=== PATIENT | female | born 1990 | race Caucasian/White ===

== ENCOUNTER → 2018-02-18 16:59 | Outpatient (CLI) | payer OTHER, SELFPAY ==
[2018-02-18 17:34] LABS: Add Manual Diff / Slide Review NO; Basophils Percent Auto 0.5 % (0-2); Eosinophils Percent Auto 1.5 % (2-4); Hematocrit 39.5 % (36-46); Hemoglobin 13.3 g/dL (12.0-16.0); Lymphocytes Percent Auto 20.4 % (25-40); Mean Corpuscular HGB Conc 33.6 % (30-36); Mean Corpuscular Hemoglobin 30.5 PG (26-34); Mean Corpuscular Volume 90.7 fL (80-100); Monocytes Percent Auto 7.1 % (3-14); Neutrophils Absolute Auto 9200 /uL (3000-5900); Neutrophils Percent Auto 70.5 % (50-75); Platelet Count 326 X10^3/uL (150-400); Red Blood Cell Count 4.36 X10^6/uL (4.0-5.2); Red Cell Distribution Width 12.9 % (11.6-14.8); White Blood Cell Count 13.1 X10^3/uL (4.5-11.0)
[2018-02-18 17:34] LABS: Appearance Urine UA CLEAR; Bilirubin Urine UA NEGATIVE (NEGATIVE); Color Urine UA YELLOW; Glucose Urine UA NEGATIVE (Normal); Ketones Urine UA NEGATIVE (NEGATIVE); Leukocyte Esterase Urine UA 1+ (NEGATIVE); Nitrite Urine UA NEGATIVE (Negative); Occult Blood Urine UA TRACE-LYSED (Negative); Protein Urine UA NEGATIVE (Negative); Urobilinogen Urine UA 0.2 E.U./dL (0.2)
[2018-02-18 17:47] LABS: Bacteria Urine Few (2-10); RBC Urine 1-5/HPF (0-5/HPF); Squamous Epithelial Cell Urine 1-5 /HPF; Urine Comments CX ALREADY ORDERED; WBC Urine 1-5/HPF (0-5/HPF)
[2018-02-18 18:54] LABS: Hepatitis B Surface Antigen NEGATIVE s/c (NEGATIVE); Rubella Antibody IgG 15.7 IU/mL (>15)
[2018-02-18 19:12] LABS: HIV 1 and 2 Antibody NEGATIVE (NEGATIVE); Hep C Virus Ab w/Reflex Quant NEGATIVE s/c (NEGATIVE)
[2018-02-21 13:05] LABS: RPR Screen Nonreactive (Nonreactive)
[2018-02-21 14:11] LABS: HSV 2 IGG AB < 0.90 index (< 0.90)
== END ==
PROVIDERS: PCP Family Medicine; Visit Provider Specialist
DX: Z34.91 Encounter for supervision of normal pregnancy, unspecified, first trimester (principal)
CPT/HCPCS: 36415; 80055; 81003; 81015; 86695; 86696; 86703; 86787; 86803; 86850; 86900; 86901; 87086

== ENCOUNTER → 2018-04-17 08:34 | Outpatient (CLI) | payer OTHER, SELFPAY ==
[2018-04-22 11:59] LABS: AFP, Serum 43.4 ng/mL; Calc Gestational Age 17.3; Cigarette Smoker N; Donated Egg NOT GIVEN; Donor Egg Age NOT GIVEN; Estriol, Free 1.96 ng/mL; Inhibin A, Dimeric 219 pg/mL; Maternal Weight 162 lbs; Number of Fetuses 2; Previous Pregnancy Down Syndro NOT GIVEN; Risk of Open Neural Tube Defec UNAVAILABLE; hCG, Serum 71.9 IU/mL
== END ==
PROVIDERS: PCP Family Medicine; Visit Provider Specialist
DX: Z34.82 Encounter for supervision of other normal pregnancy, second trimester (principal)
CPT/HCPCS: 36415; 82105; 82677; 84702; 86336

== ENCOUNTER → 2018-05-07 09:15 | Outpatient (CLI) | payer OTHER, SELFPAY ==
--- NOTE | 2018-05-07 09:16 | DI.US.S_ITS ---
PROCEDURE: US OB >= 14 WEEKS FETUS INDICATIONS: 20 WEEK ANATOMIC SURVEY OUTSIDE/PRIOR DATING DATA: Last menstrual period (LMP): 12/17/17. LMP-based estimated date of delivery (SUSHANT): 09/23/18. First dating scan (date and location): 05/07/18. Estimated date of delivery (SUSHANT) from first dating scan: 09/27/18. TECHNIQUE: Real-time scanning was performed of the fetuses, with image documentation and biometric measurements. Endovaginal scanning: No COMPARISON: [facility], , OB >= 14 WEEKS FETUS, 05/01/2018, 13:48. FINDINGS: General: An intrauterine diamniotic dichorionic twin is present, as evidenced by separate placentas, differing sexes, or an intervening membrane of greater than 2 mm. Amniotic fluid index (composite): 10.9 cm. Maternal cervical canal: 4.7 cm long. Normal lower limit is 2.5 cm. FETUS A: Fetus is located on the maternal right side, and is in vertex presentation. Largest amniotic fluid pocket not obtained. Placental position is anterior, without previa. heart rate: 141 beats per minute. biometrics: Biparietal diameter: 19 weeks 3 days Head circumference: 19 weeks 3 days Abdominal circumference: 19 weeks 4 days Femur length: 19 weeks 4 days Estimated gestational age from initial scan: 20 weeks 1 day Composite gestational age from present scan: 19 weeks 4 days Estimated weight and percentile: 297 g; 16 percentile Measurement variability for biometric dating: +/- 7 days from 14 weeks to 15 weeks 6 days gestation, +/- 10 days from 16 weeks to 21 weeks 6 days gestation, +/- 2 weeks from 22 weeks to 27 weeks 6 days gestation, +/- 3 weeks for 28 weeks gestation or later. weight reference: 4500 g or EFW >90/95% is considered macrosomia or large for gestational age. EFW <10% is small for gestational age. EFW 5% or less is considered intra-uterine growth restriction. Anatomic survey: Neuro: Ventricles are normal at less than 10 mm. Cisterna magna is normal at 3-11 mm. Cerebellum is normal in size and morphology. Nuchal skin fold: Normal at less than 6 mm between 14 and 21 weeks gestational age. Face: Nose and lips are normal in facial profile is not well-seen Spine: No evidence for spina bifida. Heart: 4 chambered heart is present, with normal ventricular outflow tracts. Diaphragm: Diaphragm is intact. Stomach: Left-sided stomach is present. Kidneys: No hydronephrosis. Normal ranges are less than 5 mm in 2nd trimester, less than 7 mm in 3rd trimester. Cord: 3 vessel cord has orthotopic insertion. Bladder: Normal in size. Extremities: All 4 extremities are visualized. FETUS B: Fetus is located on the maternal left side, and is in vertex presentation. Largest amniotic fluid pocket: Not obtained. Placental position is anterior, without previa. heart rate: 150 beats per minute. biometrics: Biparietal diameter: 19 weeks 3 days Head circumference: 19 weeks 5 days Abdominal circumference: 19 weeks 4 days Femur length: 19 weeks 4 days Estimated gestational age from initial scan: 20 weeks 1 day Composite gestational age from present scan: 19 weeks 4 days Estimated weight and percentile: 301 g; 18 percentile Measurement variability for biometric dating: +/- 7 days from 14 weeks to 15 weeks 6 days gestation, +/- 10 days from 16 weeks to 21 weeks 6 days gestation, +/- 2 weeks from 22 weeks to 27 weeks 6 days gestation, +/- 3 weeks for 28 weeks gestation or later. weight reference: 4500 g or EFW >90/95% is considered macrosomia or large for gestational age. EFW <10% is small for gestational age. EFW 5% or less is considered intra-uterine growth restriction. Anatomic survey: Neuro: Ventricles are normal at less than 10 mm. Cisterna magna is normal at 3-11 mm. Cerebellum is normal in size and morphology. Nuchal skin fold: Normal at less than 6 mm between 14 and 21 weeks gestational age. Face: Nose and lips, facial profile are normal. Spine: No evidence for spina bifida. Heart: 4 chambered heart is present, with normal ventricular outflow tracts. Diaphragm: Diaphragm is intact. Stomach: Left-sided stomach is present. Kidneys: No hydronephrosis. Normal ranges are less than 5 mm in 2nd trimester, less than 7 mm in 3rd trimester. Cord: 3 vessel cord has orthotopic insertion. Bladder: Normal in size. Extremities: All 4 extremities are visualized. IMPRESSION: 1. Diamniotic dichorionic living twin with growth parameters as above. 2. Facial profile for fetus A not well-visualized otherwise normal anatomy. Dictated by: Neville CANTU Interpreted: Liz Castle MD on 05/07/2018 at 13:01 Approved by: Liz Castle M.D. on 05/07/2018 at 16:08
== END ==
PROVIDERS: PCP Family Medicine; Visit Provider Specialist
DX: Z36.89 Encounter for other specified antenatal screening (principal); Z3A.20 20 weeks gestation of pregnancy
CPT/HCPCS: 76811; 76812

== ENCOUNTER → 2018-06-17 11:25 | Outpatient (CLI) | payer OTHER, SELFPAY ==
[2018-06-17 13:11] LABS: Hematocrit 31.3 % (36-46); Hemoglobin 10.3 g/dL (12.0-16.0)
[2018-06-17 13:44] LABS: GTT (PREG) 1 Hour PP 50gm Dose 86 mg/dL (76-139)
== END ==
PROVIDERS: PCP Family Medicine; Visit Provider Specialist
DX: O26.892 Other specified pregnancy related conditions, second trimester (principal); Z34.82 Encounter for supervision of other normal pregnancy, second trimester; Z67.91 Unspecified blood type, Rh negative
CPT/HCPCS: 36415; 82950; 85014; 85018; 86850

== ENCOUNTER 2018-07-31 15:53 | Outpatient (CLI) | payer OTHER, SELFPAY ==
--- NOTE | 2018-07-31 16:27 | PM.OBTRLD ---
Visit Information Visit Information Date of evaluation: 07/31/18 Primary OB Provider: Paula Xiao Reason for Evaluation: Yes non-stress test non-stress test reason: other (twins 32 weeks) Evaluation Evaluation Baseline heart rate: 135 (145 second twin) Variability: Moderate (11-25) (both) monitor accelerations: Present (both) monitor decelerations: Absent (both) Uterine Contraction Intensity: Mild Category of Tracing: I Diagnosis, Plan/Disposition Final Diagnosis (1) 32 weeks gestation of : Current Visit: Yes Status: Acute (2) Dichorionic diamniotic twin in third trimester: Current Visit: Yes Status: Acute Plan/Disposition Plan: Reactive nonstress test. Although contractions on monitor cervical length is over 4 cm and patient is not feeling contractions. Weekly visits and nonstress test precautions reviewed. OB Disposition: home
== END 2018-07-31 16:30 | disposition home or self-care (01) ==
LOC: LABOR 15:58 → OB 08-01 12:11
PROVIDERS: PCP Family Medicine; Visit Provider Specialist
DX: O30.043 Twin pregnancy, dichorionic/diamniotic, third trimester (principal); Z3A.32 32 weeks gestation of pregnancy
CPT/HCPCS: 59025; G0378; G0379

== ENCOUNTER 2018-08-06 10:17 | Outpatient (CLI) | payer OTHER, SELFPAY ==
--- NOTE | 2018-08-06 10:54 | PM.OBTRLD ---
Visit Information Visit Information Date of evaluation: 08/06/18 Primary OB Provider: Paula Xiao Reason for Evaluation: Yes non-stress test non-stress test reason: other (twins 33 weeks) Evaluation Evaluation Baseline heart rate: 145 (both) Variability: Moderate (11-25) (both) monitor accelerations: Present (both) monitor decelerations: Absent (both) Contraction Frequency (minutes): 0 Category of Tracing: I Diagnosis, Plan/Disposition Final Diagnosis (1) Dichorionic diamniotic twin in third trimester: Current Visit: No Status: Acute (2) 33 weeks gestation of : Current Visit: No Status: Acute Plan/Disposition Plan: follow up weekly unless concerns OB Disposition: home
== END 2018-08-06 10:58 | disposition home or self-care (01) ==
LOC: OB 08-07 13:54
PROVIDERS: PCP Family Medicine; Visit Provider Specialist
DX: O30.043 Twin pregnancy, dichorionic/diamniotic, third trimester (principal); Z3A.33 33 weeks gestation of pregnancy
CPT/HCPCS: 59025; G0378; G0379

== ENCOUNTER 2018-08-12 08:51 | Outpatient (CLI) | payer OTHER, SELFPAY ==
--- NOTE | 2018-08-12 09:39 | PM.OBTRLD ---
Visit Information Visit Information Date of evaluation: 08/12/18 Primary OB Provider: Paula Xiao Reason for Evaluation: Yes non-stress test non-stress test reason: other (Twin gestation at 34 weeks) Evaluation Evaluation Baseline heart rate: 130 (baby B 140) Variability: Moderate (11-25) (both) monitor accelerations: Present (both) monitor decelerations: Absent (both) Contraction Frequency (minutes): 0 Category of Tracing: I Diagnosis, Plan/Disposition Final Diagnosis (1) Dichorionic diamniotic twin in third trimester: Current Visit: No Status: Acute (2) 34 weeks gestation of : Current Visit: Yes Status: Acute Plan/Disposition Plan: Normal nonstress test, follow-up in 1 week OB Disposition: home
== END 2018-08-12 09:50 | disposition home or self-care (01) ==
LOC: LABOR 09:44 → OB 08-13 08:02
PROVIDERS: PCP Family Medicine; Visit Provider Specialist
DX: O30.043 Twin pregnancy, dichorionic/diamniotic, third trimester (principal); Z3A.34 34 weeks gestation of pregnancy
CPT/HCPCS: 59025; G0378; G0379

== ENCOUNTER 2018-08-19 09:05 | Outpatient (CLI) | payer OTHER, SELFPAY ==
--- NOTE | 2018-08-19 09:53 | PM.OBTRLD ---
Visit Information Visit Information Date of evaluation: 08/19/18 Primary OB Provider: Paula Xiao Reason for Evaluation: Yes non-stress test non-stress test reason: other (Twin gestation 35 week) Evaluation Evaluation Baseline heart rate: 150 (both) Variability: Moderate (11-25) (both) monitor accelerations: Present (both) monitor decelerations: Absent (both) Contraction Frequency (minutes): 5 Uterine Contraction Intensity: Mild Category of Tracing: I (both) Diagnosis, Plan/Disposition Final Diagnosis (1) Dichorionic diamniotic twin in third trimester: Current Visit: No Status: Acute (2) 35 weeks gestation of : Current Visit: Yes Status: Acute Plan/Disposition Plan: Continue weekly nonstress tests OB Disposition: home
== END 2018-08-19 10:00 | disposition home or self-care (01) ==
LOC: LABOR 10:09 → OB 15:16
PROVIDERS: PCP Family Medicine; Visit Provider Specialist
DX: O30.043 Twin pregnancy, dichorionic/diamniotic, third trimester (principal); Z3A.35 35 weeks gestation of pregnancy
CPT/HCPCS: 59025; G0378; G0379

== ENCOUNTER → 2018-08-26 08:08 | Outpatient (CLI) | payer OTHER, SELFPAY ==
[2018-08-27 10:15] LABS: Strep Grp B PCR NEG for Grp B Strep
== END ==
PROVIDERS: Visit Provider Specialist
DX: O09.93 Supervision of high risk pregnancy, unspecified, third trimester (principal); Z3A.36 36 weeks gestation of pregnancy
CPT/HCPCS: 87653

== ENCOUNTER 2018-08-26 08:19 | Outpatient (CLI) | payer OTHER, SELFPAY ==
--- NOTE | 2018-08-26 09:13 | PM.OBTRLD ---
Visit Information Visit Information Date of evaluation: 08/26/18 Reason for Evaluation: Yes non-stress test non-stress test reason: other (Twins at 36 weeks) Evaluation Evaluation Baseline heart rate: 140 Variability: Moderate (11-25) (Both) monitor accelerations: Present (Both) monitor decelerations: Absent (Both) Diagnosis, Plan/Disposition Final Diagnosis (1) 36 weeks gestation of : Current Visit: Yes Status: Acute (2) Dichorionic diamniotic twin in third trimester: Current Visit: No Status: Acute Plan/Disposition Plan: Weekly nonstress tests induction scheduled for 07/12/2018 OB Disposition: home
== END 2018-08-26 09:10 | disposition home or self-care (01) ==
LOC: OB 08-27 06:57
PROVIDERS: Visit Provider Specialist
DX: O30.043 Twin pregnancy, dichorionic/diamniotic, third trimester (principal); Z3A.36 36 weeks gestation of pregnancy
CPT/HCPCS: 59025; 87653; G0378; G0379

== ENCOUNTER 2018-08-28 12:42 | Outpatient (CLI) | payer OTHER, SELFPAY ==
--- NOTE | 2018-08-28 13:16 | PM.OBTRLD ---
Visit Information Visit Information Date of evaluation: 08/28/18 Primary OB Provider: Paula Xiao Reason for Evaluation: Yes rule out labor Evaluation Evaluation Baseline heart rate: 140 (both) Variability: Moderate (11-25) (both) monitor accelerations: Present (both) monitor decelerations: Absent (both) Contraction Frequency (minutes): 10 Uterine Contraction Intensity: Mild Category of Tracing: I Cervical dilation (cm): 3 Cervical effacement (%): 80 station: -1 Diagnosis, Plan/Disposition Final Diagnosis (1) 36 weeks gestation of : Current Visit: Yes Status: Acute (2) Premature uterine contractions: Current Visit: Yes Status: Acute Problem details: No cervical change patient was sent home to be followed up have routine unless her contractions increase
== END 2018-08-28 13:17 | disposition home or self-care (01) ==
LOC: OB 08-30 13:02
PROVIDERS: Visit Provider Specialist
DX: O47.9 False labor, unspecified (principal); Z3A.36 36 weeks gestation of pregnancy
CPT/HCPCS: 59025; G0378; G0379

== ENCOUNTER 2018-09-02 08:23 | Outpatient (CLI) | payer OTHER, SELFPAY ==
--- NOTE | 2018-09-02 09:16 | PM.OBTRLD ---
Visit Information Visit Information Date of evaluation: 09/02/18 Reason for Evaluation: Yes non-stress test non-stress test reason: other (twins) Vital Signs Vital Signs: P113 Evaluation Evaluation Baseline heart rate: 140 (both) Variability: Moderate (11-25) (both) monitor accelerations: Present (both) monitor decelerations: Absent (both) Contraction Frequency (minutes): 0 Diagnosis, Plan/Disposition Final Diagnosis (1) 37 weeks gestation of : Current Visit: Yes Status: Acute (2) Dichorionic diamniotic twin in third trimester: Current Visit: No Status: Acute Plan/Disposition Plan: Follow-up in 1 week patient is scheduled for induction on 09/11 at 38 weeks OB Disposition: home
== END 2018-09-02 09:20 | disposition home or self-care (01) ==
LOC: LABOR 08:50 → OB 09-03 16:38
PROVIDERS: Visit Provider Specialist
DX: O30.043 Twin pregnancy, dichorionic/diamniotic, third trimester (principal); Z3A.37 37 weeks gestation of pregnancy
CPT/HCPCS: 59025; G0378; G0379

== ENCOUNTER 2018-09-04 11:07 | Outpatient (CLI) | payer OTHER, SELFPAY ==
--- NOTE | 2018-09-04 12:10 | PM.OBTRLD ---
Visit Information Visit Information Date of evaluation: 09/04/18 Primary OB Provider: Paula Xiao Reason for Evaluation: Yes rupture of membranes Vital Signs Vital Signs: Blood pressure 130/77, pulse 121, temperature 99? Evaluation Evaluation Baseline heart rate: 150 (160 B) Variability: Moderate (11-25) (both) monitor accelerations: Present (both) monitor decelerations: Absent (both) Contraction Frequency (minutes): 3 Uterine Contraction Intensity: Mild Category of Tracing: I Non-invasive Membranes Rupture Test: negative Diagnosis, Plan/Disposition Final Diagnosis (1) Premature uterine contractions: Current Visit: No Status: Acute Problem details: No cervical change patient was sent home to be followed up have routine unless her contractions increase. Testing for rupture membranes was negative (2) 37 weeks gestation of : Current Visit: No Status: Acute (3) Dichorionic diamniotic twin in third trimester: Current Visit: No Status: Acute
== END 2018-09-04 12:10 | disposition home or self-care (01) ==
LOC: LABOR 11:39 → OB 09-06 10:43
PROVIDERS: Visit Provider Specialist
DX: O47.9 False labor, unspecified (principal); O30.043 Twin pregnancy, dichorionic/diamniotic, third trimester; Z3A.37 37 weeks gestation of pregnancy
CPT/HCPCS: 59025; 84112; G0378; G0379

== ENCOUNTER 2018-09-07 08:04 | Inpatient (IN) | payer OTHER, SELFPAY ==
--- NOTE | 2018-09-07 08:59 | P.HPOB_ITS ---
OB HPI Date/Time Date of admission: 09/07/18 Date Patient Seen: 09/07/18 Time Patient Seen: 08:57 History of Present Condition Chief complaint: OBS : 3 Para: 1 Estimated Date of Delivery: 09/23/18 Estimated Gestational Age (weeks): 37 Narrative: Leilani Salguero is a 27 year old female admitted in active labor History of Present care: good care, initiated at week # (10), number of visits (24) and pounds weight gain (67) Dating criteria: LMP confirmed by 1st trimester US Ultrasounds: normal mid trimester US Obstetrical complications: none Medical complications: none Preadmission Labs Blood type: A (-) negative -: Antibody screen: negative, GBS status: negative, HBsAG: negative, HIV: negative, HSV 1: positive, HSV 2: negative and RPR/VDLR: negative -: Chlamydia screen: not detected and Gonorrhea screen: not detected -: Rubella: immune and Varicella: immune HCAB: negative PAP: Normal Quad screen: Normal 1 hr GTT: 86 Prior (ies) History: 06/29/14 22 week demise 06/15 SAB 08/31/16 40 week male 10#10 ounce vaginal delivery Evaluation Evaluation Baseline heart rate: 130 (140 baby B) Variability: Moderate (11-25) (both) monitor accelerations: Present (both) monitor decelerations: Absent (both) Contraction Frequency (minutes): 3 Uterine Contraction Intensity: Strong/Firm Category of Tracing: I Cervical dilation (cm): 10 Cervical effacement (%): 100 station: -3 [facility] Medical History (Updated 09/07/18 @ 11:06 by Paula Xiao MD) Migraine (Chronic) Ulcerative colitis (Chronic) Hyperthyroidism (Inactive) Meds Home Medications Medication Instructions Recorded Confirmed Type vit-iron fum-folic ac 1 cap PO QDAY #0 09/29/16 History [Mynatal] Allergies Allergy/AdvReac Type Severity Reaction Status Date / Time No Known Allergies Allergy Uncoded 08/08/17 12:58 Review of Systems Review of Systems Patient denies signs or symptoms of preeclampsia. No rupture membranes. Good movement. All systems reviewed & are unremarkable except as noted in HPI and below Exam Narrative Exam Narrative: HEENT exam within normal limits. Lungs are clear to auscultation percussion. Heart is regular rate and rhythm. No thyromegaly. Gravid uterus. Extremities with trace edema and nontender. Assessment and Plan Assessment and Plan Assessment and Plan narrative: Thirty-seven week gestation twin vertex breech with planned vaginal delivery if possible. Epidural catheter to be placed.
[2018-09-07] MEDS: METHYLERGONOVINE 0.2 MG/ML VIAL IM (10:25)
[2018-09-07] MEDS: OXYTOCIN 10 UNIT/ML VIAL IM (10:25)
[2018-09-07 11:14] LABS: Add Manual Diff / Slide Review NO; Basophils Absolute Auto 100 /uL (0-100); Basophils Percent Auto 0.4 % (0-2); Eosinophils Absolute Auto 200 /uL (0-450); Hematocrit 38.2 % (36-46); Hemoglobin 12.4 g/dL (12.0-16.0); Lymphocytes Absolute Auto 1800 /uL (1100-4500); Mean Corpuscular HGB Conc 32.3 % (30-36); Mean Corpuscular Hemoglobin 30.4 PG (26-34); Monocytes Absolute Auto 1100 /uL (0-900); Monocytes Percent Auto 7.4 % (3-14); Neutrophils Absolute Auto 12000 /uL (1500-7000); Neutrophils Percent Auto 79.2 % (50-75); Platelet Count 233 X10^3/uL (150-400); Red Blood Cell Count 4.07 X10^6/uL (4.0-5.2); Red Cell Distribution Width 15.2 % (11.6-14.8); White Blood Cell Count 15.1 X10^3/uL (4.5-11.0)
--- NOTE | 2018-09-07 11:15 | PM.OBPRVD ---
Delivery date: 09/07/18 Intrapartal events: Multiple Gestation (twins) Cervical ripening method: none Induction method: none Delivery monitor: external FHT and external uterine Route of delivery: (twin A) and vacuum extraction (twin B) Indication for instrumentation: nonreassuring FHR tracing ( deceleration) L&D Laceration Description: Perineal - 1st Degree Delivery repair: chromic (3-0) Estimated blood loss (mL): 400 Anesthesia type: Epidural Narrative: Patient arrived on Labor and delivery in active labor. She was completely dilated. Infants were vertex/ breech. It was planned to attempt vaginal delivery with version of the 2nd baby if necessary. heart tones remained reassuring. She had spontaneous rupture membranes clear fluid in twin A. She had a spontaneous vaginal delivery. The female infant was placed on the maternal abdomen. After cord stopped pulsating the cord was clamped, cut and cord bloods obtained. With ultrasound it was documented that baby B had turned to VTX. After a period of time the membranes were needled to allow the vertex to descend in the pelvis. The amniotic fluid was clear. There was a complete rupture of membranes at which time there was a section of cord that came down next to the baby's head. The vacuum was placed on the vertex and the fetus brought down to the vaginal opening. Vacuum was applied for approximately a minute and half. The 's head was delivered. There was a slight shoulder dystocia that was relieved by delivering the posterior arm. The male infant was placed on maternal abdomen but had poor tone so was taken to the warmer. Baby responded quickly to resuscitation measures. Cord bloods were obtained. The placenta delivered spontaneously, intact, with 3 vessels on both cords. there were no cervical or vaginal tears. There was a first-degree midline perineal tear that was repaired with 3 0 chromic suture. There was a 0.5 cm inclusion cyst with creamy white liquid inside of the tear. This was removed prior to repair. Patient did have a increased bleeding so was given 10 mcg of IM Pitocin as well as IV Pitocin and and 0.2 mg IM Methergine. Both infants and mother are doing well. Baby 1: Infant gender: Female Presentation: vertex position: Right Occiput Anterior Placenta delivery description: Spontaneous cord vessel description: 3 Vessels score (1 min): 8 score (5 min): 9 2: gender: Male Presentation: vertex position: Right Occiput Anterior Placenta delivery description: Spontaneous cord vessel description: 3 Vessels score (1 min): 7 score (5 min): 9 Plan for aftercare: Routine post vaginal delivery
[2018-09-07] MEDS: IBUPROFEN 600 MG TABLET PO ×2 (12:27→18:40)
[2018-09-07 17:14] VITALS: BP 151/77
[2018-09-08] MEDS: IBUPROFEN 600 MG TABLET PO ×4 (00:55→19:35)
[2018-09-08] MEDS: LANOLIN OINT 7 GM 1 APPLIC TOP (05:07)
[2018-09-08] MEDS: DERMOPLAST SPRAY 20% 60 ML 1 SPRAY TOP (05:07)
[2018-09-08 05:37] LABS: Add Manual Diff / Slide Review NO; Basophils Absolute Auto 0 /uL (0-100); Basophils Percent Auto 0.4 % (0-2); Eosinophils Absolute Auto 300 /uL (0-450); Eosinophils Percent Auto 2.4 % (2-4); Hemoglobin 10.7 g/dL (12.0-16.0); Lymphocytes Absolute Auto 2200 /uL (1100-4500); Lymphocytes Percent Auto 16.9 % (25-40); Mean Corpuscular HGB Conc 33.3 % (30-36); Mean Corpuscular Hemoglobin 31.2 PG (26-34); Mean Corpuscular Volume 93.7 fL (80-100); Monocytes Absolute Auto 1300 /uL (0-900); Monocytes Percent Auto 10.1 % (3-14); Neutrophils Absolute Auto 9000 /uL (1500-7000); Neutrophils Percent Auto 70.2 % (50-75); Platelet Count 160 X10^3/uL (150-400); Red Blood Cell Count 3.42 X10^6/uL (4.0-5.2); Red Cell Distribution Width 15.2 % (11.6-14.8); White Blood Cell Count 12.8 X10^3/uL (4.5-11.0)
[2018-09-08] MEDS: DOCUSATE 250 MG CAPSULE PO (07:30)
--- NOTE | 2018-09-08 13:37 | PM.OBPN.1 ---
Subjective - OB Patient comments: pain well controlled (back pain with ibuprofen) [place] baby status: doing well and nursing well feeding status: exclusively breast feeding Date Patient Seen: 09/08/18 Time Patient Seen: 13:37 Interval history: day #1 vaginal delivery 1st twin, of vacuum extraction 2nd twin. Patient is having back pain even before her labor. The ibuprofen seems to be working well. no signs or symptoms of preeclampsia. She is urinating and ambulating well. Exam Vital Signs (past 8 hours): Blood pressure 124/68, pulse of 93, temperature 98.9? Narrative Exam Narrative: Abdomen is soft, nontender. Uterus is firm, at U, nontender. Mild lochia. Extremities with trace edema and nontender. Objective Labs Result Diagrams: 09/08/18 05:03 Labs: Laboratory Results - last 24 hr 09/07/18 09/08/18 14:15 05:03 WBC 12.8 H RBC 3.42 L Hgb 10.7 L Hct 32.0 L MCV 93.7 MCH 31.2 MCHC 33.3 RDW 15.2 H Plt Count 160 Neut % (Auto) 70.2 Lymph % (Auto) 16.9 L [place] % (Auto) 10.1 Eos % (Auto) 2.4 Baso % (Auto) 0.4 Neut # (Auto) 9000 H Lymph # (Auto) 2200 [place] # (Auto) 1300 H Eos # (Auto) 300 Baso # (Auto) 0 Maternal Bleed Negative Assessment & Plan (1) Vaginal delivery: Status: Acute Current Visit: Yes Plan day: 1 plan OB: routine care Comments: Patient is doing well . Plan is for discharge in a.m.. Time Spent With Patient Total time spent is greater than 50% in coordination of care (as documented) at patient's floor/unit and/or counseling patient: less than 15 minutes
[2018-09-08] MEDS: RHO(D) IMMUNE GLOBULIN 1,500 UNIT SYRINGE 1500 UNIT IM (15:02)
[2018-09-09] MEDS: IBUPROFEN 600 MG TABLET PO ×3 (01:30→13:43)
[2018-09-09 10:18] VITALS: BP 122/74; PULSE 82; RESP 16; TEMP 37.5
--- NOTE | 2018-09-09 12:17 | PM.OBDS.1 ---
Discharge Providers Date of admission: 09/07/18 08:04 Discharge Date: 09/09/18 Consults: 09/07/18 10:48 Consult to Anesthesiology Urgent Comment: Consulting Provider: Anesthesiologist Reason for consultation: Epidural Has provider been notified: Yes 09/07/18 10:56 Consult to Vp Routine Comment: Discharge provider: Paula Xiao MD Summary Date Patient Seen: 09/09/18 Time Patient Seen: 12:18 Procedures: Epidural catheter, Pitocin augmentation, vaginal delivery twin A, vacuum assisted delivery twin B, repair of first-degree vaginal tear Hospital Course: Patient arrived in Labor and delivery in active labor. She received an epidural catheter for pain control. She had spontaneous delivery of twin A. Baby B who had been in the breech position settled into the vertex position without incident. Patient did not have active contractions so Pitocin augmentation was started. Vacuum was placed to expedite delivery of baby B. Mother and babies did well . Patient is urinating and ambulating well. She has no signs or symptoms of preeclampsia. Her bleeding is mild. Discharge Diagnosis (1) Vaginal delivery: Status: Acute (2) 37 weeks gestation of : Status: Acute (3) Dichorionic diamniotic twin gestation: Status: Acute Time Spent with Patient Total time spent providing and/or coordinating discharge services: Objective Labs Result Diagrams: 09/08/18 05:03 Exam Vital Signs (past 8 hours): Blood pressure 116/70, pulse of 87, temperature 98.2?- 09/09/18 10:18 Temperature 99.5 F Pulse Rate 82 Respiratory Rate 16 Blood Pressure 122/74 Narrative Exam Narrative: Patient's abdomen is soft, nontender. Uterus is firm, at U, nontender. mild lochia. Extremities with trace edema and nontender. Patient's blood type is A negative and she did receive RhoGAM. She is rubella immune Discharge Plan Discharge Plan Patient Disposition: Home Discharge Med Rec/Prescriptions Prescriptions: New ibuprofen 600 mg Tablet 600 mg PO Q6HR PRN (Reason: Pain, Mild (1-3)) Qty: 30 RF: 0 Continued vit-iron fum-folic ac [Mynatal] 1 EACH capsule 1 cap PO QDAY Qty: 0 RF: 0 Follow up/Referrals: Paula Xiao MD [Physician] - 1 Month (please f/u w/ Dr. iXao on October 09 @ 8:30am) Provider Discharge Instructions Diet: Regular Activity: nothing in vagina for 4 weeks Skin/Wound/Dressing Care Report to your healthcare provider any signs of infection, such as:: chills, fever and increased pain Visit Report/Discharge Packet Stand Alone Forms: Discharge: Care Discharge Data Attending Provider: Paula Xiao Admit Date/Time: 09/07/18 08:04
--- NOTE | 2018-09-09 12:21 | P.DS_ITS ---
Discharge Providers Date of admission: 09/07/18 08:04 Discharge Date: 09/09/18 Consults: 09/07/18 10:48 Consult to Anesthesiology Urgent Comment: Consulting Provider: Anesthesiologist Reason for consultation: Epidural Has provider been notified: Yes 09/07/18 10:56 Consult to Physical Sciences Professor Routine Comment: Discharge provider: Paula Xiao MD Summary Date Patient Seen: 09/09/18 Time Patient Seen: 12:18 Procedures: Epidural catheter, Pitocin augmentation, vaginal delivery twin A, vacuum assisted delivery twin B, repair of first-degree vaginal tear Hospital Course: Patient arrived in Labor and delivery in active labor. She received an epidural catheter for pain control. She had spontaneous delivery of twin A. Baby B who had been in the breech position settled into the vertex position without incident. Patient did not have active contractions so Pitocin augmentation was started. Vacuum was placed to expedite delivery of baby B. Mother and babies did well . Patient is urinating and ambulating well. She has no signs or symptoms of preeclampsia. Her bleeding is mild. Discharge Diagnosis (1) Vaginal delivery: Status: Acute (2) 37 weeks gestation of : Status: Acute (3) Dichorionic diamniotic twin gestation: Status: Acute Time Spent with Patient Total time spent providing and/or coordinating discharge services: Objective Labs Result Diagrams: 09/08/18 05:03 Exam Vital Signs (past 8 hours): Blood pressure 116/70, pulse of 87, temperature 98.2?- 09/09/18 10:18 Temperature 99.5 F Pulse Rate 82 Respiratory Rate 16 Blood Pressure 122/74 Narrative Exam Narrative: Patient's abdomen is soft, nontender. Uterus is firm, at U, nontender. mild lochia. Extremities with trace edema and nontender. Patient's blood type is A negative and she did receive RhoGAM. She is rubella immune Discharge Plan Discharge Plan Patient Disposition: Home Discharge Med Rec/Prescriptions Prescriptions: New ibuprofen 600 mg Tablet 600 mg PO Q6HR PRN (Reason: Pain, Mild (1-3)) Qty: 30 RF: 0 Continued vit-iron fum-folic ac [Mynatal] 1 EACH capsule 1 cap PO QDAY Qty: 0 RF: 0 Follow up/Referrals: Paula Xiao MD [Physician] - 1 Month (please f/u w/ Dr. Xiao on October 09 @ 8:30am) Provider Discharge Instructions Diet: Regular Activity: nothing in vagina for 4 weeks Skin/Wound/Dressing Care Report to your healthcare provider any signs of infection, such as:: chills, fe alex and increased pain Visit Report/Discharge Packet Stand Alone Forms: Discharge: Care Discharge Data Attending Provider: Paula Xiao Admit Date/Time: 09/07/18 08:04
== END 2018-09-09 14:00 | disposition home or self-care (01) | DRG 807 ==
PROVIDERS: Admitting Provider Specialist; Visit Provider Specialist
DX: O30.043 Twin pregnancy, dichorionic/diamniotic, third trimester (principal); Z37.2 Twins, both liveborn; Z3A.37 37 weeks gestation of pregnancy; O70.0 First degree perineal laceration during delivery
CPT/HCPCS: 01967; 36415; 59050; 59400; 59409; 85025; 85461; 86850; 86900; 86901; G0379; J2210; J2590; J2790; J3010

== ENCOUNTER → 2019-03-06 14:03 | Outpatient (ROUT) | payer OTHER, SELFPAY ==
[2019-03-06 14:15] LABS: Add Manual Diff / Slide Review NO; Basophils Absolute Auto 0 /uL (0-100); Basophils Percent Auto 0.3 % (0-2); Eosinophils Absolute Auto 300 /uL (0-450); Hematocrit 39.6 % (36-46); Hemoglobin 13.4 g/dL (12.0-16.0); Lymphocytes Absolute Auto 2500 /uL (1100-4500); Lymphocytes Percent Auto 30.1 % (25-40); Mean Corpuscular HGB Conc 33.9 % (30-36); Mean Corpuscular Hemoglobin 31.4 PG (26-34); Mean Corpuscular Volume 92.6 fL (80-100); Monocytes Absolute Auto 800 /uL (0-900); Monocytes Percent Auto 8.9 % (3-14); Neutrophils Absolute Auto 4800 /uL (1500-7000); Neutrophils Percent Auto 56.7 % (50-75); Platelet Count 321 X10^3/uL (150-400); Red Blood Cell Count 4.28 X10^6/uL (4.0-5.2); Red Cell Distribution Width 12.7 % (11.6-14.8); White Blood Cell Count 8.4 X10^3/uL (4.5-11.0)
[2019-03-06 14:29] LABS: Alanine Aminotransferase 20 IU/L (<35); Albumin 5.2 g/dL (3.5-5.0); Albumin Globulin Ratio 1.6 (1.0-2.8); Alkaline Phosphatase 77 U/L (38-126); Aspartate Aminotransferase 28 IU/L (14-36); BUN Creatinine Ratio 21.7 (6-22); Bilirubin Total 0.5 mg/dL (0.2-1.3); Blood Urea Nitrogen 13 mg/dL (7-17); Carbon Dioxide 26 mmol/L (22-32); Chloride 104 mmol/L (98-107); Estimated Glomerular Filt Rate > 60.0 mL/min (>60); Globulin 3.3 g/dL (1.7-4.1); Glucose 75 mg/dL (70-100); HEMOLYSIS 30 (0-50); Potassium 4.6 mmol/L (3.4-5.1); Sodium 142 mmol/L (137-145); Total Protein 8.5 g/dL (6.3-8.2)
[2019-03-06 14:33] LABS: Erythrocyte Sedimentation Rate 15 MM/HR (0-20)
[2019-03-06 14:35] LABS: C-Reactive Protein Quant < 0.5 mg/dL (<1.0)
== END ==
PROVIDERS: Visit Provider Internal Medicine Gastroenterology
DX: K51.90 Ulcerative colitis, unspecified, without complications (principal)
CPT/HCPCS: 80053; 85025; 85651; 86140

== ENCOUNTER → 2019-08-21 13:00 | Outpatient (ROUT) | payer OTHER, SELFPAY ==
[2019-08-21 13:13] LABS: Add Manual Diff / Slide Review NO; Basophils Absolute Auto 0 /uL (0-100); Basophils Percent Auto 0.5 % (0-2); Eosinophils Absolute Auto 200 /uL (0-450); Eosinophils Percent Auto 4.1 % (2-4); Hematocrit 37.7 % (36-46); Hemoglobin 12.9 g/dL (12.0-16.0); Lymphocytes Absolute Auto 1500 /uL (1100-4500); Lymphocytes Percent Auto 27.3 % (25-40); Mean Corpuscular HGB Conc 34.1 % (30-36); Mean Corpuscular Hemoglobin 31.2 PG (26-34); Mean Corpuscular Volume 91.4 fL (80-100); Monocytes Absolute Auto 700 /uL (0-900); Monocytes Percent Auto 12.9 % (3-14); Neutrophils Absolute Auto 3000 /uL (1500-7000); Neutrophils Percent Auto 55.2 % (50-75); Platelet Count 302 X10^3/uL (150-400); Red Blood Cell Count 4.13 X10^6/uL (4.0-5.2); Red Cell Distribution Width 12.9 % (11.6-14.8); White Blood Cell Count 5.5 X10^3/uL (4.5-11.0)
[2019-08-21 13:23] LABS: Alanine Aminotransferase 16 IU/L (<35); Albumin 4.7 g/dL (3.5-5.0); Albumin Globulin Ratio 1.3 (1.0-2.8); Alkaline Phosphatase 65 U/L (38-126); Aspartate Aminotransferase 26 IU/L (14-36); BUN Creatinine Ratio 25.9 (6-22); Bilirubin Total 0.6 mg/dL (0.2-1.3); Blood Urea Nitrogen 15 mg/dL (7-17); Calcium 9.8 mg/dL (8.4-10.2); Carbon Dioxide 24 mmol/L (22-32); Chloride 106 mmol/L (98-107); Estimated Glomerular Filt Rate > 60.0 mL/min (>60); Globulin 3.7 g/dL (1.7-4.1); Glucose 92 mg/dL (70-100); Potassium 4.4 mmol/L (3.4-5.1); Sodium 140 mmol/L (137-145); Total Protein 8.4 g/dL (6.3-8.2)
[2019-08-21 13:25] LABS: C-Reactive Protein Quant < 0.5 mg/dL (<1.0); HEMOLYSIS 52 (0-50)
[2019-08-21 13:32] LABS: Erythrocyte Sedimentation Rate 14 MM/HR (0-20)
== END ==
PROVIDERS: Visit Provider Internal Medicine Gastroenterology
DX: K51.90 Ulcerative colitis, unspecified, without complications (principal)
CPT/HCPCS: 80053; 85025; 85651; 86140

== ENCOUNTER → 2020-03-18 15:27 | Outpatient (CLI) | payer OTHER, SELFPAY ==
[2020-03-18 15:48] LABS: Add Manual Diff / Slide Review NO; Basophils Absolute Auto 100 /uL (0-100); Basophils Percent Auto 0.5 % (0-2); Eosinophils Absolute Auto 300 /uL (0-450); Eosinophils Percent Auto 2.5 % (2-4); Hematocrit 38.3 % (36-46); Hemoglobin 12.9 g/dL (12.0-16.0); Lymphocytes Absolute Auto 3100 /uL (1100-4500); Lymphocytes Percent Auto 26.1 % (25-40); Mean Corpuscular HGB Conc 33.8 % (30-36); Mean Corpuscular Hemoglobin 30.7 PG (26-34); Mean Corpuscular Volume 90.9 fL (80-100); Monocytes Absolute Auto 1100 /uL (0-900); Neutrophils Absolute Auto 7300 /uL (1500-7000); Neutrophils Percent Auto 61.9 % (50-75); Platelet Count 311 X10^3/uL (150-400); Red Blood Cell Count 4.21 X10^6/uL (4.0-5.2); Red Cell Distribution Width 13.3 % (11.6-14.8); White Blood Cell Count 11.8 X10^3/uL (4.5-11.0)
== END ==
PROVIDERS: PCP Family Medicine; Referring Provider Internal Medicine Gastroenterology; Visit Provider Internal Medicine Gastroenterology
DX: K51.00 Ulcerative (chronic) pancolitis without complications (principal)
CPT/HCPCS: 36415; 85025

== ENCOUNTER → 2021-07-08 14:25 | Outpatient (CLI) | payer OTHER, SELFPAY ==
[2021-07-08 17:03] LABS: Add Manual Diff / Slide Review NO; Basophils Absolute Auto 0 /uL (0-100); Basophils Percent Auto 0.4 % (0-2); Eosinophils Absolute Auto 200 /uL (0-450); Eosinophils Percent Auto 2.3 % (2-4); Hematocrit 36.5 % (36-46); Hemoglobin 12.7 g/dL (12.0-16.0); Lymphocytes Absolute Auto 2200 /uL (1100-4500); Lymphocytes Percent Auto 22.5 % (25-40); Mean Corpuscular HGB Conc 34.8 % (30-36); Mean Corpuscular Hemoglobin 31.5 PG (26-34); Mean Corpuscular Volume 90.5 fL (80-100); Monocytes Absolute Auto 700 /uL (0-900); Monocytes Percent Auto 7.4 % (3-14); Neutrophils Absolute Auto 6600 /uL (1500-7000); Neutrophils Percent Auto 67.4 % (50-75); Platelet Count 325 X10^3/uL (150-400); Red Blood Cell Count 4.04 X10^6/uL (4.0-5.2); Red Cell Distribution Width 13.2 % (11.6-14.8); White Blood Cell Count 9.8 X10^3/uL (4.5-11.0)
[2021-07-08 17:17] LABS: Alanine Aminotransferase 17 IU/L (<35); Albumin 4.6 g/dL (3.5-5.0); Albumin Globulin Ratio 1.2 (1.0-2.8); Alkaline Phosphatase 50 U/L (38-126); Aspartate Aminotransferase 25 IU/L (14-36); BUN Creatinine Ratio 9.8 (6-22); Bilirubin Total 0.3 mg/dL (0.2-1.3); Blood Urea Nitrogen 11 mg/dL (7-17); C-Reactive Protein Quant < 0.5 mg/dL (<1.0); Calcium 9.2 mg/dL (8.4-10.2); Carbon Dioxide 28 mmol/L (22-32); Chloride 102 mmol/L (98-107); Estimated Glomerular Filt Rate 57.5 mL/min (>60); Globulin 3.9 g/dL (1.7-4.1); Glucose 67 mg/dL (70-100); HEMOLYSIS < 15 (0-50); Sodium 139 mmol/L (137-145); Total Protein 8.5 g/dL (6.3-8.2)
[2021-07-08 19:51] LABS: Erythrocyte Sedimentation Rate 16 MM/HR (0-20)
== END ==
PROVIDERS: PCP Family Medicine; Referring Provider Internal Medicine Gastroenterology; Visit Provider Internal Medicine Gastroenterology
DX: K51.919 Ulcerative colitis, unspecified with unspecified complications (principal)
CPT/HCPCS: 80053; 85025; 85651; 86140

== ENCOUNTER → 2021-09-02 13:40 | Outpatient (CLI) | payer OTHER, SELFPAY ==
[2021-09-02 14:51] LABS: Add Manual Diff / Slide Review NO; Basophils Absolute Auto 0 /uL (0-100); Basophils Percent Auto 0.7 % (0-2); Eosinophils Absolute Auto 200 /uL (0-450); Eosinophils Percent Auto 3.8 % (2-4); Hematocrit 35.6 % (36-46); Hemoglobin 12.6 g/dL (12.0-16.0); Lymphocytes Absolute Auto 2200 /uL (1100-4500); Mean Corpuscular HGB Conc 35.5 % (30-36); Mean Corpuscular Volume 90.2 fL (80-100); Monocytes Absolute Auto 600 /uL (0-900); Monocytes Percent Auto 9.6 % (3-14); Neutrophils Absolute Auto 3000 /uL (1500-7000); Neutrophils Percent Auto 49.9 % (50-75); Platelet Count 342 X10^3/uL (150-400); Red Blood Cell Count 3.94 X10^6/uL (4.0-5.2); Red Cell Distribution Width 13.3 % (11.6-14.8)
[2021-09-02 15:09] LABS: Erythrocyte Sedimentation Rate 28 MM/HR (0-20)
[2021-09-02 15:10] LABS: Alanine Aminotransferase 17 IU/L (<35); Albumin 4.8 g/dL (3.5-5.0); Albumin Globulin Ratio 1.2 (1.0-2.8); Alkaline Phosphatase 49 U/L (38-126); Aspartate Aminotransferase 35 IU/L (14-36); BUN Creatinine Ratio 15.5 (6-22); Bilirubin Total 0.5 mg/dL (0.2-1.3); Blood Urea Nitrogen 9 mg/dL (7-17); C-Reactive Protein Quant < 0.5 mg/dL (<1.0); Calcium 9.1 mg/dL (8.4-10.2); Carbon Dioxide 23 mmol/L (22-32); Chloride 107 mmol/L (98-107); Estimated Glomerular Filt Rate > 60 mL/min (>60); Globulin 3.9 g/dL (1.7-4.1); Glucose 92 mg/dL (70-100); Potassium 4.8 mmol/L (3.4-5.1); Sodium 139 mmol/L (137-145); Total Protein 8.7 g/dL (6.3-8.2)
[2021-09-02 15:22] LABS: HEMOLYSIS 95 (0-50)
== END ==
PROVIDERS: PCP Family Medicine; Referring Provider Internal Medicine Gastroenterology; Visit Provider Internal Medicine Gastroenterology
DX: K51.919 Ulcerative colitis, unspecified with unspecified complications (principal)
CPT/HCPCS: 80053; 85025; 85651; 86140

== ENCOUNTER → 2021-10-28 14:04 | Outpatient (CLI) | payer OTHER, SELFPAY ==
[2021-10-28 14:51] LABS: Add Manual Diff / Slide Review NO; Basophils Absolute Auto 100 /uL (0-100); Basophils Percent Auto 0.6 % (0-2); Eosinophils Absolute Auto 400 /uL (0-450); Eosinophils Percent Auto 3.7 % (2-4); Hematocrit 36.7 % (36-46); Hemoglobin 12.7 g/dL (12.0-16.0); Lymphocytes Absolute Auto 2500 /uL (1100-4500); Lymphocytes Percent Auto 23.8 % (25-40); Mean Corpuscular HGB Conc 34.6 % (30-36); Mean Corpuscular Hemoglobin 31.5 PG (26-34); Mean Corpuscular Volume 91.1 fL (80-100); Monocytes Absolute Auto 800 /uL (0-900); Neutrophils Absolute Auto 6600 /uL (1500-7000); Neutrophils Percent Auto 63.9 % (50-75); Platelet Count 300 X10^3/uL (150-400); Red Blood Cell Count 4.03 X10^6/uL (4.0-5.2); White Blood Cell Count 10.4 X10^3/uL (4.5-11.0)
[2021-10-28 14:59] LABS: Alanine Aminotransferase 17 IU/L (<35); Albumin 4.6 g/dL (3.5-5.0); Albumin Globulin Ratio 1.2 (1.0-2.8); Alkaline Phosphatase 57 U/L (38-126); Aspartate Aminotransferase 25 IU/L (14-36); BUN Creatinine Ratio 16.4 (6-22); Bilirubin Total 0.4 mg/dL (0.2-1.3); Blood Urea Nitrogen 10 mg/dL (7-17); C-Reactive Protein Quant < 0.5 mg/dL (<1.0); Carbon Dioxide 30 mmol/L (22-32); Chloride 103 mmol/L (98-107); Estimated Glomerular Filt Rate > 60 mL/min (>60); Globulin 3.7 g/dL (1.7-4.1); Glucose 74 mg/dL (70-100); HEMOLYSIS < 15 (0-50); Potassium 4.2 mmol/L (3.4-5.1); Sodium 140 mmol/L (137-145); Total Protein 8.3 g/dL (6.3-8.2)
[2021-10-28 15:15] LABS: Erythrocyte Sedimentation Rate 18 MM/HR (0-20)
== END ==
PROVIDERS: PCP Family Medicine; Referring Provider Internal Medicine Gastroenterology; Visit Provider Internal Medicine Gastroenterology
DX: K51.919 Ulcerative colitis, unspecified with unspecified complications (principal)
CPT/HCPCS: 80053; 85025; 85651; 86140

== ENCOUNTER → 2022-04-15 17:26 | Outpatient (ROUT) | payer OTHER, SELFPAY ==
[2022-04-15 17:40] LABS: Add Manual Diff / Slide Review NO; Basophils Absolute Auto 100 /uL (0-100); Basophils Percent Auto 1.1 % (0-2); Eosinophils Absolute Auto 200 /uL (0-450); Eosinophils Percent Auto 3.3 % (2-4); Hemoglobin 12.9 g/dL (12.0-16.0); Lymphocytes Absolute Auto 2900 /uL (1100-4500); Lymphocytes Percent Auto 39.5 % (25-40); Mean Corpuscular HGB Conc 34.1 % (30-36); Monocytes Absolute Auto 600 /uL (0-900); Monocytes Percent Auto 8.6 % (3-14); Neutrophils Absolute Auto 3500 /uL (1500-7000); Neutrophils Percent Auto 47.5 % (50-75); Platelet Count 336 X10^3/uL (150-400); Red Blood Cell Count 4.17 X10^6/uL (4.0-5.2); Red Cell Distribution Width 13.3 % (11.6-14.8); White Blood Cell Count 7.4 X10^3/uL (4.5-11.0)
[2022-04-15 17:58] LABS: Alanine Aminotransferase 29 IU/L (<35); Albumin 4.7 g/dL (3.5-5.0); Albumin Globulin Ratio 1.1 (1.0-2.8); Alkaline Phosphatase 58 U/L (38-126); Aspartate Aminotransferase 46 IU/L (14-36); Bilirubin Total 0.5 mg/dL (0.2-1.3); Blood Urea Nitrogen 8 mg/dL (7-17); C-Reactive Protein Quant < 0.5 mg/dL (<1.0); Carbon Dioxide 24 mmol/L (22-32); Chloride 102 mmol/L (98-107); Estimated Glomerular Filt Rate > 60 mL/min (>60); Globulin 4.2 g/dL (1.7-4.1); Glucose 93 mg/dL (70-100); HEMOLYSIS 63 (0-50); Potassium 4.4 mmol/L (3.4-5.1); Sodium 140 mmol/L (137-145); Total Protein 8.9 g/dL (6.3-8.2)
[2022-04-15 18:22] LABS: Erythrocyte Sedimentation Rate 15 MM/HR (0-20)
== END ==
PROVIDERS: PCP Family Medicine; Visit Provider Internal Medicine Gastroenterology
DX: K51.919 Ulcerative colitis, unspecified with unspecified complications (principal)
CPT/HCPCS: 80053; 85025; 85651; 86140

== ENCOUNTER → 2022-06-09 12:46 | Outpatient (CLI) | payer OTHER, SELFPAY ==
[2022-06-09 13:16] LABS: Add Manual Diff / Slide Review NO; Basophils Absolute Auto 100 /uL (0-100); Basophils Percent Auto 0.9 % (0-2); Eosinophils Absolute Auto 200 /uL (0-450); Eosinophils Percent Auto 2.3 % (2-4); Hematocrit 36.9 % (36-46); Hemoglobin 12.3 g/dL (12.0-16.0); Lymphocytes Absolute Auto 2700 /uL (1100-4500); Lymphocytes Percent Auto 39.6 % (25-40); Mean Corpuscular HGB Conc 33.4 % (30-36); Mean Corpuscular Hemoglobin 30.5 PG (26-34); Mean Corpuscular Volume 91.2 fL (80-100); Monocytes Absolute Auto 400 /uL (0-900); Neutrophils Absolute Auto 3500 /uL (1500-7000); Neutrophils Percent Auto 51.2 % (50-75); Platelet Count 309 X10^3/uL (150-400); Red Blood Cell Count 4.04 X10^6/uL (4.0-5.2); Red Cell Distribution Width 13.3 % (11.6-14.8); White Blood Cell Count 6.8 X10^3/uL (4.5-11.0)
[2022-06-09 13:36] LABS: Alanine Aminotransferase 15 IU/L (<35); Albumin 4.3 g/dL (3.5-5.0); Albumin Globulin Ratio 1.1 (1.0-2.8); Alkaline Phosphatase 52 U/L (38-126); Aspartate Aminotransferase 21 IU/L (14-36); BUN Creatinine Ratio 19.3 (6-22); Bilirubin Total 0.4 mg/dL (0.2-1.3); Blood Urea Nitrogen 11 mg/dL (7-17); C-Reactive Protein Quant < 0.5 mg/dL (<1.0); Calcium 8.8 mg/dL (8.4-10.2); Carbon Dioxide 27 mmol/L (22-32); Chloride 102 mmol/L (98-107); Estimated Glomerular Filt Rate > 60 mL/min (>60); Globulin 3.8 g/dL (1.7-4.1); Glucose 101 mg/dL (70-100); HEMOLYSIS < 15 (0-50); Potassium 4.2 mmol/L (3.4-5.1); Sodium 139 mmol/L (137-145); Total Protein 8.1 g/dL (6.3-8.2)
[2022-06-09 13:37] LABS: Erythrocyte Sedimentation Rate 14 MM/HR (0-20)
== END ==
PROVIDERS: PCP Family Medicine; Referring Provider Internal Medicine Gastroenterology; Visit Provider Internal Medicine Gastroenterology
DX: K51.919 Ulcerative colitis, unspecified with unspecified complications (principal)
CPT/HCPCS: 36415; 80053; 85025; 85651; 86140

== ENCOUNTER → 2022-12-22 08:37 | Outpatient (CLI) | payer OTHER, SELFPAY ==
[2022-12-26 19:53] LABS: Calprotectin, Stool 4130 ug/g (0-120)
== END ==
PROVIDERS: PCP Family Medicine; Referring Provider Internal Medicine Gastroenterology; Visit Provider Internal Medicine Gastroenterology
DX: K51.00 Ulcerative (chronic) pancolitis without complications (principal)
CPT/HCPCS: 83993

== ENCOUNTER → 2023-03-20 09:19 | Outpatient (CLI) | payer OTHER, SELFPAY ==
[2023-03-20 10:20] LABS: Add Manual Diff / Slide Review NO; Basophils Absolute Auto 100 /uL (0-100); Eosinophils Absolute Auto 200 /uL (0-450); Eosinophils Percent Auto 3.7 % (2-4); Hematocrit 38.2 % (36-46); Hemoglobin 12.9 g/dL (12.0-16.0); Lymphocytes Absolute Auto 1500 /uL (1100-4500); Lymphocytes Percent Auto 28.6 % (25-40); Mean Corpuscular HGB Conc 33.7 % (30-36); Mean Corpuscular Hemoglobin 30.8 PG (26-34); Mean Corpuscular Volume 91.4 fL (80-100); Monocytes Absolute Auto 500 /uL (0-900); Monocytes Percent Auto 8.8 % (3-14); Neutrophils Absolute Auto 3100 /uL (1500-7000); Neutrophils Percent Auto 57.9 % (50-75); Platelet Count 313 X10^3/uL (150-400); Red Blood Cell Count 4.18 X10^6/uL (4.0-5.2); Red Cell Distribution Width 12.8 % (11.6-14.8); White Blood Cell Count 5.3 X10^3/uL (4.5-11.0)
[2023-03-20 10:37] LABS: Alanine Aminotransferase 23 IU/L (<35); Albumin 4.5 g/dL (3.5-5.0); Albumin Globulin Ratio 1.2 (1.0-2.8); Alkaline Phosphatase 59 U/L (38-126); Aspartate Aminotransferase 27 IU/L (14-36); Bilirubin Total 0.5 mg/dL (0.2-1.3); Blood Urea Nitrogen 9 mg/dL (7-17); C-Reactive Protein Quant < 0.5 mg/dL (<1.0); Calcium 9.8 mg/dL (8.4-10.2); Carbon Dioxide 25 mmol/L (22-32); Chloride 105 mmol/L (98-107); Estimated Glomerular Filt Rate > 60 mL/min (>60); Globulin 3.7 g/dL (1.7-4.1); Glucose 95 mg/dL (70-100); HEMOLYSIS < 15 (0-50); Potassium 4.1 mmol/L (3.4-5.1); Sodium 140 mmol/L (137-145); Total Protein 8.2 g/dL (6.3-8.2)
[2023-03-22 10:00] LABS: QuantiFERON Mitogen Value >10.00 IU/mL (.); QuantiFERON TB Gold Plus Negative (Negative); QuantiFERON TB1 Ag Value 0.01 IU/mL (.); QuantiFERON TB2 Ag Value 0.02 IU/mL (.)
== END ==
PROVIDERS: PCP Family Medicine; Referring Provider Internal Medicine Gastroenterology; Visit Provider Internal Medicine Gastroenterology
DX: K51.00 Ulcerative (chronic) pancolitis without complications (principal)
CPT/HCPCS: 36415; 80053; 85025; 86140; 86480

== ENCOUNTER → 2023-03-29 09:07 | Outpatient (CLI) | payer OTHER, SELFPAY ==
[2023-04-03 20:55] LABS: Calprotectin, Stool 91 ug/g (0-120)
== END ==
PROVIDERS: PCP Family Medicine; Referring Provider Internal Medicine Gastroenterology; Visit Provider Internal Medicine Gastroenterology
DX: K51.00 Ulcerative (chronic) pancolitis without complications (principal)
CPT/HCPCS: 83993

== ENCOUNTER → 2023-09-18 10:09 | Outpatient (CLI) | payer OTHER, SELFPAY ==
[2023-09-18 11:22] LABS: Add Manual Diff / Slide Review NO; Basophils Absolute Auto 0 /uL (0-100); Basophils Percent Auto 0.3 % (0-2); Eosinophils Absolute Auto 200 /uL (0-450); Eosinophils Percent Auto 2.7 % (2-4); Hemoglobin 12.5 g/dL (12.0-16.0); Lymphocytes Absolute Auto 2000 /uL (1100-4500); Lymphocytes Percent Auto 34.4 % (25-40); Mean Corpuscular HGB Conc 33.8 % (30-36); Mean Corpuscular Hemoglobin 30.8 PG (26-34); Mean Corpuscular Volume 91.2 fL (80-100); Monocytes Absolute Auto 900 /uL (0-900); Monocytes Percent Auto 14.9 % (3-14); Neutrophils Absolute Auto 2700 /uL (1500-7000); Neutrophils Percent Auto 47.7 % (50-75); Platelet Count 225 X10^3/uL (150-400); Red Blood Cell Count 4.06 X10^6/uL (4.0-5.2); Red Cell Distribution Width 13.4 % (11.6-14.8); White Blood Cell Count 5.8 X10^3/uL (4.5-11.0)
[2023-09-18 12:29] LABS: Alanine Aminotransferase 25 IU/L (<35); Albumin 4.3 g/dL (3.5-5.0); Albumin Globulin Ratio 1.2 (1.0-2.8); Alkaline Phosphatase 70 U/L (38-126); Aspartate Aminotransferase 30 IU/L (14-36); BUN Creatinine Ratio 19.4 (6-22); Bilirubin Total 0.3 mg/dL (0.2-1.3); Blood Urea Nitrogen 12 mg/dL (7-17); Carbon Dioxide 29 mmol/L (22-32); Chloride 105 mmol/L (98-107); Estimated Glomerular Filt Rate > 60 mL/min (>60); Globulin 3.5 g/dL (1.7-4.1); Glucose 90 mg/dL (70-100); HEMOLYSIS < 15 (0-50); Sodium 141 mmol/L (137-145); Total Protein 7.8 g/dL (6.3-8.2)
[2023-09-18 15:42] LABS: C-Reactive Protein Quant 0.5 mg/dL (<1.0)
== END ==
PROVIDERS: PCP Family Medicine; Referring Provider Internal Medicine Gastroenterology; Visit Provider Internal Medicine Gastroenterology
DX: K51.00 Ulcerative (chronic) pancolitis without complications (principal)
CPT/HCPCS: 36415; 80053; 83993; 85025; 86140

== ENCOUNTER → 2023-12-12 14:27 | Outpatient (CLI) | payer OTHER, SELFPAY ==
--- NOTE | 2023-12-12 14:29 | DI.CT.S_ITS ---
PROCEDURE: CT SINUS SCREEN WO CON INDICATIONS: CHRONIC MAXILLARY SINUSITIS TECHNIQUE: Noncontrast 3.0 mm axial images acquired from the frontal sinuses to the following was used: automated exposure control, adjustment of mA and/or kV according to patient size. COMPARISON: None. FINDINGS: Image quality: Excellent. Maxillary Sinuses: No bony remodeling or destruction. Trace mucosal thickening within both maxillary sinus. Ethmoid Air Cells: No bony remodeling or destruction. Sinuses are clear. Sphenoid Sinuses: No bony remodeling or destruction. Small mucous retention cyst within the left sphenoid sinus. The right sphenoid sinus is clear. The sphenoid ethmoid recesses are patent bilaterally. Frontal Sinuses: There is moderate mucosal thickening within the left frontal sinus. There is a 0.6 centimeter calcified focus within the left frontal sinus that abuts and partially occludes the left frontoethmoid recess. The right frontal sinus is clear. The right frontoethmoidal recess is patent. Ostiomeatal Complexes: Ostiomeatal complexes are patent. Is Miscellaneous: Visualized intra-orbital contents are normal. Small cecelia bullosa within the right middle and superior turbinate. No paradoxical turbinate curvature. No nasal septal deviation. IMPRESSION: 1. 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 There is moderate mucosal thickening in the left frontal sinus. 2. Trace mucosal thickening within both maxillary sinuses and multiple small mucous retention cysts within the left sphenoid sinus. 3. The right frontal ethmoid recess, bilateral ostiomeatal units and bilateral sphenoethmoid recesses are patent. 4. Small cecelia bullosa within the superior and middle right turbinate. Dictated by: Chico Awan M.D. on 12/13/2023 at 9:02 Approved by: Chico Awan M.D. on 12/13/2023 at 9:36
== END ==
LOC: CT 14:28
PROVIDERS: PCP Family Medicine; Referring Provider Family Medicine; Visit Provider Family Medicine
DX: D16.4 Benign neoplasm of bones of skull and face (principal); J32.0 Chronic maxillary sinusitis; J34.1 Cyst and mucocele of nose and nasal sinus; J34.3 Hypertrophy of nasal turbinates
CPT/HCPCS: 70486

== ENCOUNTER → 2024-03-04 14:41 | Outpatient (ROUT) | payer OTHER, SELFPAY ==
[2024-03-04 14:47] LABS: Add Manual Diff / Slide Review NO; Basophils Absolute Auto 0 /uL (0-100); Basophils Percent Auto 0.4 % (0-2); Eosinophils Absolute Auto 200 /uL (0-450); Eosinophils Percent Auto 2.2 % (2-4); Hematocrit 37.7 % (36-46); Hemoglobin 12.6 g/dL (12.0-16.0); Lymphocytes Absolute Auto 2000 /uL (1100-4500); Lymphocytes Percent Auto 21.1 % (25-40); Mean Corpuscular HGB Conc 33.5 % (30-36); Mean Corpuscular Volume 92.5 fL (80-100); Monocytes Absolute Auto 600 /uL (0-900); Monocytes Percent Auto 6.5 % (3-14); Neutrophils Absolute Auto 6600 /uL (1500-7000); Neutrophils Percent Auto 69.8 % (50-75); Platelet Count 317 X10^3/uL (150-400); Red Blood Cell Count 4.07 X10^6/uL (4.0-5.2); White Blood Cell Count 9.4 X10^3/uL (4.5-11.0)
[2024-03-04 15:11] LABS: Alanine Aminotransferase 18 IU/L (<35); Albumin 4.6 g/dL (3.5-5.0); Albumin Globulin Ratio 1.4 (1.0-2.8); Alkaline Phosphatase 55 U/L (38-126); Aspartate Aminotransferase 25 IU/L (14-36); BUN Creatinine Ratio 22.7 (6-22); Bilirubin Total 0.4 mg/dL (0.2-1.3); Blood Urea Nitrogen 15 mg/dL (7-17); C-Reactive Protein Quant < 0.5 mg/dL (<1.0); Calcium 9.5 mg/dL (8.4-10.2); Carbon Dioxide 27 mmol/L (22-32); Chloride 104 mmol/L (98-107); Estimated Glomerular Filt Rate > 60 mL/min (>60); Globulin 3.4 g/dL (1.7-4.1); Glucose 91 mg/dL (70-100); HEMOLYSIS < 15 (0-50); Potassium 4.1 mmol/L (3.4-5.1); Sodium 140 mmol/L (137-145)
== END ==
PROVIDERS: PCP Family Medicine; Visit Provider Family Medicine
DX: K51.80 Other ulcerative colitis without complications (principal)
CPT/HCPCS: 80053; 85025; 86140

== ENCOUNTER → 2024-03-06 08:47 | Outpatient (CLI) | payer OTHER, SELFPAY ==
[2024-03-13 19:08] LABS: Calprotectin, Stool 451 ug/g (0-120)
== END ==
PROVIDERS: PCP Family Medicine; Referring Provider Family Medicine; Visit Provider Family Medicine
DX: K51.80 Other ulcerative colitis without complications (principal)
CPT/HCPCS: 83993

== ENCOUNTER → 2024-08-13 13:19 | Outpatient (CLI) | payer OTHER, SELFPAY ==
[2024-08-13 13:45] LABS: Add Manual Diff / Slide Review NO; Basophils Absolute Auto 0 /uL (0-100); Basophils Percent Auto 0.3 % (0-2); Eosinophils Absolute Auto 300 /uL (0-450); Eosinophils Percent Auto 2.8 % (2-4); Hematocrit 37.3 % (36-46); Hemoglobin 12.8 g/dL (12.0-16.0); Lymphocytes Absolute Auto 2400 /uL (1100-4500); Lymphocytes Percent Auto 26.4 % (25-40); Mean Corpuscular HGB Conc 34.2 % (30-36); Mean Corpuscular Hemoglobin 31.6 PG (26-34); Mean Corpuscular Volume 92.3 fL (80-100); Monocytes Absolute Auto 900 /uL (0-900); Monocytes Percent Auto 9.9 % (3-14); Neutrophils Absolute Auto 5500 /uL (1500-7000); Neutrophils Percent Auto 60.6 % (50-75); Platelet Count 366 X10^3/uL (150-400); Red Blood Cell Count 4.05 X10^6/uL (4.0-5.2); Red Cell Distribution Width 13.7 % (11.6-14.8)
[2024-08-13 14:05] LABS: Alanine Aminotransferase 20 IU/L (<35); Albumin 4.5 g/dL (3.5-5.0); Albumin Globulin Ratio 1.2 (1.0-2.8); Alkaline Phosphatase 65 U/L (38-126); Aspartate Aminotransferase 25 IU/L (14-36); BUN Creatinine Ratio 17.3 (6-22); Bilirubin Total 0.3 mg/dL (0.2-1.3); Blood Urea Nitrogen 14 mg/dL (7-17); Calcium 9.3 mg/dL (8.4-10.2); Carbon Dioxide 28 mmol/L (22-32); Chloride 102 mmol/L (98-107); Estimated Glomerular Filt Rate > 60 mL/min (>60); Globulin 3.9 g/dL (1.7-4.1); Glucose 97 mg/dL (70-100); HEMOLYSIS < 15 (0-50); Potassium 4.5 mmol/L (3.4-5.1); Sodium 139 mmol/L (137-145); Total Protein 8.4 g/dL (6.3-8.2)
[2024-08-14 12:34] LABS: C-Reactive Protein Quant < 0.5 mg/dL (<1.0)
== END ==
PROVIDERS: PCP Family Medicine; Referring Provider Family Medicine; Visit Provider Family Medicine
DX: K51.80 Other ulcerative colitis without complications (principal)
CPT/HCPCS: 80053; 85025; 86140

== ENCOUNTER → 2024-08-14 09:26 | Outpatient (CLI) | payer OTHER, SELFPAY | PROVIDERS: PCP Family Medicine; Referring Provider Family Medicine; Visit Provider Family Medicine | DX: K51.80 Other ulcerative colitis without complications (principal) | CPT/HCPCS: 87045 ==

== ENCOUNTER → 2024-08-22 09:19 | Outpatient (CLI) | payer OTHER, SELFPAY | PROVIDERS: PCP Family Medicine; Referring Provider Family Medicine; Visit Provider Family Medicine | DX: K51.80 Other ulcerative colitis without complications (principal) | CPT/HCPCS: 83993 ==

== ENCOUNTER → 2024-12-01 15:08 | Outpatient (CLI) | payer OTHER, SELFPAY ==
[2024-12-01 17:04] LABS: Add Manual Diff / Slide Review NO; Hematocrit 34.8 % (36-46); Hemoglobin 11.9 g/dL (12.0-16.0); Lymphocytes Absolute Auto 2600 /uL (1100-4500); Mean Corpuscular HGB Conc 34.3 % (30-36); Mean Corpuscular Hemoglobin 31.9 PG (26-34); Mean Corpuscular Volume 93.1 fL (80-100); Platelet Count 472 X10^3/uL (150-400)
[2024-12-01 17:25] LABS: Alanine Aminotransferase 13 IU/L (<35); Albumin 4.6 g/dL (3.5-5.0); Albumin Globulin Ratio 1.4 (1.0-2.8); Alkaline Phosphatase 85 U/L (38-126); Blood Urea Nitrogen 12 mg/dL (7-17); Calcium 9.6 mg/dL (8.4-10.2); Carbon Dioxide 25 mmol/L (22-32); Chloride 102 mmol/L (98-107); Estimated Glomerular Filt Rate > 60 mL/min (>60); Globulin 3.3 g/dL (1.7-4.1); Glucose 82 mg/dL (70-99); HEMOLYSIS < 15 (0-50); Potassium 4.1 mmol/L (3.4-5.1); Sodium 138 mmol/L (137-145); Total Protein 7.9 g/dL (6.3-8.2)
[2024-12-02 16:47] LABS: Hepatitis B Surface Antigen NEGATIVE s/c (NEGATIVE)
[2024-12-03 15:10] LABS: QuantiFERON Mitogen Value >10.00 IU/mL (.); QuantiFERON Nil Value 0.02 IU/mL (.); QuantiFERON TB Gold Plus Negative (Negative); QuantiFERON TB1 Ag Value 0.02 IU/mL (.); QuantiFERON TB2 Ag Value 0.03 IU/mL (.)
== END ==
PROVIDERS: PCP Family Medicine; Referring Provider Internal Medicine Gastroenterology; Visit Provider Internal Medicine Gastroenterology
DX: K51.90 Ulcerative colitis, unspecified, without complications (principal); K62.5 Hemorrhage of anus and rectum; R19.5 Other fecal abnormalities
CPT/HCPCS: 36415; 80053; 85025; 86140; 86480; 86706; 87340

== ENCOUNTER → 2024-12-02 16:14 | Outpatient (CLI) | payer OTHER, SELFPAY | PROVIDERS: PCP Family Medicine; Referring Provider Internal Medicine Gastroenterology; Visit Provider Internal Medicine Gastroenterology | DX: K51.90 Ulcerative colitis, unspecified, without complications (principal); R19.5 Other fecal abnormalities; K62.5 Hemorrhage of anus and rectum | CPT/HCPCS: 87177 ==